=== PATIENT | female | born 1995 | race Caucasian/White ===

== ENCOUNTER 2016-09-10 20:53 | Emergency (ER) | payer BC ==
[2016-09-10 21:07] VITALS: RESP 16
--- NOTE | 2016-09-10 21:23 | EDPHY ---
H & P Stated Complaint: CP, difficulty breathing Time Seen by Provider: 09/10/16 21:46 HPI/ROS: CHIEF COMPLAINT: Dyspnea, chest pain HISTORY OF PRESENT ILLNESS: This patient is a normally healthy 20-year-old female who presents to the Emergency Department complaining of worsening dyspnea described as difficulty catching her breath beginning yesterday morning. She reports one prior similar episode earlier this year; her chest x- ray at that time showed right-sided pulmonary "fluid" that resolved spontaneously. Today, while at work, she reports right-sided "clenching" chest pain which prompted her to present to the ED. No pain radiation, diaphoresis, nausea, or vomiting. She was recently sick with a cold that has improved but reports a persistent intermittent cough. She denies leg pain or swelling. She just returned home from [facility] on Tuesday (12-hour flight). She takes Mirena for control. No familial history of blood clots. REVIEW OF SYSTEMS: A ten point review of systems was performed and is negative with the exception of the items mentioned in the HPI. Source: Patient - Personal History LMP (Females 10-55): Now Current Tetanus/Diphtheria Vaccine: Yes Current Tetanus Diphtheria and Acellular Pertussis (TDAP): Yes - Medical/Surgical History PMH: Denies Hx Asthma: No Hx Chronic Respiratory Disease: No Hx Diabetes: No Hx Cardiac Disease: No Hx Renal Disease: No Hx Cirrhosis: No Hx Alcoholism: No Hx HIV/AIDS: No Hx Splenectomy or Spleen Trauma: No Other PMH: denies - Social History Smoking Status: Never smoked Additional Social History: Non-smoker. Works in a cafe. Student. - Physical Exam Exam: General Appearance: Alert. Vital signs reviewed and are within normal ranges. Eyes: Pupils equal and round, no conjunctival injection, no discharge. Anicteric. ENT, Mouth: Mucous membranes are moist, no oropharyngeal erythema or edema. Neck: No lymphadenopathy, supple. Trachea midline. Respiratory: Lungs are clear to auscultation; no wheezes, rales, or rhonchi. Cardiovascular: Regular rate and rhythm; no murmur, rub, or gallop. Thorax: Nontender. No crepitus. Gastrointestinal: Abdomen is soft and nontender, no masses or organomegaly, bowel sounds normal. Skin: Warm and dry, no rashes on exposed skin, normal color. Back: Nontender to palpation over the thoracolumbar spine. No CVAT. Extremities: No lower extremity edema, no calf tenderness or swelling. Neurological: Alert and oriented. Moving all four extremities easily and equally. Psychiatric: Normal affect. Constitutional: Initial Vital Signs Temperature (C) 36.6 C 09/10/16 21:05 Heart Rate 70 09/10/16 21:05 Respiratory Rate 16 09/10/16 21:05 Blood Pressure 107/69 09/10/16 21:05 O2 Sat (%) 94 09/10/16 21:05 O2 Delivery Mode Room Air Allergies/Adverse Reactions: amoxicillin [Amoxicillin] Allergy (Verified 09/10/16 21:04) Home Medications: Medication Instructions Recorded Bcp 09/10/16 Vitamin C 09/10/16 Medical Decision Making - Diagnostics EKG Interpretation: The 12 lead EKG was interpreted by myself: Sinus rhythm, rate 60; no ischemic changes. See hard copy and/or "tracemaster" electronic copy for interpretation. Imaging Results: Two-view chest x-ray reviewed by me in PACs. No infiltrate or pneumothorax. No acute pulmonary disease. Have also reviewed the radiology report. Imaging: I viewed and interpreted images myself (Normal) ED Course/Re-evaluation: Normally healthy 20-year-old female presents with complaint of worsening dyspnea since yesterday and right-sided chest pain beginning this afternoon. She reports prior episode of similar chest pain and difficulty breathing worked up by her PCP; per her report, she had some fluid in her right lung that resolved spontaneously at that time. At time of presentation, she is resting comfortably with stable vitals. No significant findings on exam. She does report recent international travel. Using the PERC rule in this low risk patient she scores 1 point for oral contraceptive use. Will proceed with chest x-ray and d-dimer. EKG obtained and is normal. Chest x-ray reviewed by me is normal. D-dimer obtained and is negative. I feel the P is effectively ruled out by applying the PERC rule and obtaining an negative D-dimer I discussed lab and x-ray findings with the patient. I explained to her that the underlying etiology for her dyspnea and chest tightness is unclear at this point. I recommended to her that she follow-up with her PCP for further evaluation if her complaints do not improve by early next week. She is frustrated by the lack of diagnosis. As above, I am not concerned about PE at this time. There is no evidence of pneumothorax. She does not have pneumonia. She has not had trauma and I do not see a rib fracture on her chest x-ray. Her pain is right-sided and I do not suspect pericarditis. This could be costochondritis or pleurisy. We discussed the use of Tylenol and/or ibuprofen. She understands customary return precautions and will be discharged home in good condition. Departure - Departure Disposition: Home, Routine, Self-Care Clinical Impression: Dyspnea Qualifiers: Dyspnea type: shortness of breath Qualified Code(s): R06.02 - Shortness of breath Condition: Good Instructions: Dyspnea (ED) Additional Instructions: 1. Follow-up with your primary care provider within the next 3-4 days if your shortness of breath does not improve. 2. Take 400mg Ibuprofen every 6 hours as needed for chest pain. 3. Return to the Emergency Department if you experience leg pain or swelling, worsening shortness of breath, severe chest pain, nausea or vomiting, excessive sweating, or for other serious concerns. Referrals: Keri Rod MD [Medical Doctor] - As per Instructions Stand Alone Forms: Work Excuse Report Scribed for: Adrienne Burns Report Scribed by: Elzbieta Woods Date of Report: 09/10/16 Time of Report: 21:31 Physician Review and Approval Statement: 09/10/16 21:23 Portions of this note were transcribed by the medical liaison. I, Dr. Adrienne Burns, personally performed the history, physical exam, and medical decision- making; and confirmed the accuracy of the information in the transcribed note.
--- NOTE | 2016-09-10 21:24 | CPEKG ---
Heart Rate: 60 RR Interval: 1000 P-R Interval: 136 QRSD Interval: 98 QT Interval: 428 QTC Interval: 428 P Home: 7 QRS Home: -7 T Wave Home: 44 EKG Severity - NORMAL ECG - EKG Impression: SINUS RHYTHM Electronically Signed By: Adrienne Burns 11-Sep-2016 01:39:40
[2016-09-10 23:04] VITALS: BP 115/78; PULSE 64; TEMP 98.2; O2SAT 98
== END 2016-09-10 23:07 | disposition home or self-care (01) ==
DX: R06.02 Shortness of breath (principal)